=== PATIENT | male | born 1980 | race Caucasian/White ===

== ENCOUNTER 2019-01-31 12:18 | Emergency (ER) | payer SELFPAY ==
[2019-01-31 12:54] VITALS: BP 131/91; PULSE 76; TEMP 98; BMI 31.8
[2019-01-31] MEDS ORDERED: KETOROLAC TROMETHAMINE 30 MG/1 ML VIAL IVPUSH ONE (13:29)
[2019-01-31] MEDS ORDERED: KETOROLAC TROMETHAMINE 30 MG/1 ML VIAL ONE (14:17)
[2019-01-31 14:22] LABS: BASO % 0.6 % (0-2.0); EOS % 0.2 % (0-4.5); HEMATOCRIT 45.3 % (35.4-49); LYMPH % 8.1 % (8-40); MCH 30.9 pg (25.7-33.7); MCHC 33.1 g/dl (32.0-35.9); MEAN CELL VOLUME 93.3 fl (80-96); MONO % 6.1 % (3.8-10.2); PLATELET COUNT 437 K/MM3 (134-434); RBC 4.86 M/mm3 (4.00-5.60); RDW 14.4 % (11.9-15.9); WHITE BLOOD COUNT 14.7 K/mm3 (4.0-10.0)
[2019-01-31 14:36] LABS: PH,URINE 5.5 (5.0-8.0); URINE APPEARANCE CLEAR; URINE BILIRUBIN NEGATIVE (NEGATIVE); URINE COLOR YELLOW; URINE GLUCOSE (UA) NEGATIVE (NEGATIVE); URINE KETONE NEGATIVE (NEGATIVE); URINE LEUK ESTERASE NEGATIVE (NEGATIVE); URINE NITRITE NEGATIVE (NEGATIVE); URINE PROTEIN NEGATIVE (NEGATIVE); URINE UROBILINOGEN 0.2 mg/dL (0.2-1.0)
[2019-01-31 14:45] LABS: ALBUMIN 4.5 g/dl (3.4-5.0); BILIRUBIN,TOTAL 0.4 mg/dL (0.2-1); BLOOD UREA NITROGEN 11.4 mg/dL (7-18); CALCIUM 9.1 mg/dL (8.5-10.1); CREATININE 0.7 mg/dL (0.55-1.3); POTASSIUM 3.9 mmol/L (3.5-5.1)
--- NOTE | 2019-01-31 16:29 | PDOC ---
History of Present Illness - General Chief Complaint: Pain Stated Complaint: ABD PAIN Time Seen by Provider: 01/31/19 13:26 History Source: Patient Exam Limitations: No Limitations - History of Present Illness Travel History: No Initial Comments: 01/31/19 15:36 38-year-old male who presents the ED with complaints of left lower quadrant pain which he describes as sharp worsened with movement since yesterday patient states similar pain years ago a few months ago but it went away on its own and did not follow-up with his doctor. Patient has no urinary complaints, bowel complaints, a lump noted with movement, fever, chills nausea, recent injury Timing/Duration: reports: constant Quality: reports: moderate, cramping, sharpness Abdominal Pain Onset Location: reports: LLQ Pain Radiation: reports: groin Activities at Onset: reports: none Aggravating Factors: improves with: None Alleviating Factors: improves with: None Past History - Travel Traveled outside of the country in the last 30 days: No Close contact w/someone who was outside of country & ill: No - Past Medical History Allergies/Adverse Reactions: Allergies Allergy/AdvReac Type Severity Reaction Status Date / Time No Known Allergies Allergy Verified 01/31/19 12:50 Home Medications: Ambulatory Orders NK [No Known Home Medication] 01/31/19 COPD: No - Psycho Social/Smoking Cessation Hx Smoking History: Current some day smoker Number of Cigarettes Smoked Daily: 5 Information on smoking cessation initiated: No Hx Alcohol Use: No Drug/Substance Use Hx: No Patient Lives Alone: No Lives with/in: spouse/SO Review of Systems - Review of Systems Able to Perform ROS?: Yes Constitutional: No: Symptoms Reported HEENTM: No: Symptoms Reported Respiratory: No: Symptoms reported Cardiac (ROS): No: Symptoms Reported ABD/GI: Yes: Abdominal cramping : No: Symptoms Reported Musculoskeletal: No: Symptoms Reported Integumentary: No: Symptoms Reported Neurological: No: Symptoms reported *Physical Exam - Vital Signs Last Vital Signs Temp Pulse Resp BP Pulse Ox 98 F 76 18 131/91 99 01/31/19 12:50 01/31/19 12:50 01/31/19 12:50 01/31/19 12:50 01/31/19 12:50 - Physical Exam General Appearance: Yes: Nourished, Appropriately Dressed. No: Apparent Distress HEENT: positive: EOMI, FABIAN. negative: Pale Conjunctivae Neck: positive: Supple Respiratory/Chest: positive: Lungs Clear, Normal Breath Sounds. negative: Respiratory Distress, Accessory Muscle Use Cardiovascular: positive: Regular Rhythm, Regular Rate. negative: Murmur Gastrointestinal/Abdominal: positive: Normal Bowel Sounds, Soft, Tenderness ( llq and left suprapubic tenderness). negative: Distended, Guarding, Rebound, Hernia, Mass Male Genitalia: positive: normal genitalia Musculoskeletal: negative: CVA Tenderness Integumentary: positive: Normal Color, Warm, Moist. negative: Rash Neurologic: positive: Motor Strength 5/5 (ambulatory) ED Treatment Course - LABORATORY CBC & Chemistry Diagram: 01/31/19 13:45 01/31/19 13:45 - ADDITIONAL ORDERS Additional order review: Laboratory Results 01/31/19 01/31/19 01/31/19 14:00 13:45 13:45 Sodium 140 Potassium 3.9 Chloride 106 Carbon Dioxide 26 Anion Gap 7 L BUN 11.4 Creatinine 0.7 Est GFR (CKD-EPI)AfAm 137.78 Est GFR (CKD-EPI)NonAf 118.88 Random Glucose 93 Calcium 9.1 Magnesium 2.6 H Total Bilirubin 0.4 AST 44 H ALT 72 H Alkaline Phosphatase 83 Total Protein 8.0 Albumin 4.5 Urine Color Yellow Urine Appearance Clear Urine pH 5.5 Ur Specific [place] 1.022 Urine Protein Negative Urine Glucose (UA) Negative Urine Ketones Negative Urine Blood Negative Urine Nitrite Negative Urine Bilirubin Negative Urine Urobilinogen 0.2 Ur Leukocyte Esterase Negative 01/31/19 13:45 RBC 4.86 MCV 93.3 MCHC 33.1 RDW 14.4 MPV 7.0 L Neutrophils % 85.0 H Lymphocytes % 8.1 Monocytes % 6.1 Eosinophils % 0.2 Basophils % 0.6 - RADIOLOGY Radiology Studies Ordered: Category Date Time Status ABDOMEN & PELVIS CT W/O CONTR [CT] Stat CT Scan 01/31/19 13:30 Ordered - Medications Given in the ED: ED Medications Discontinued Medications Generic Name Dose Route Start Last Admin Trade Name Freq PRN Reason Stop Dose Admin Ketorolac Tromethamine 30 mg 01/31/19 13:29 01/31/19 14:28 Toradol Injection - IVPUSH 01/31/19 13:30 30 mg ONCE ONE Administration Medical Decision Making - Medical Decision Making 01/31/19 15:38 Chief complaint: Left lower quadrant pain which she describes as sharp cramping rating to his left groin. Patient states similar symptoms earlier this year which resolved on its own. Patient has no other complaints at this time patient denies medical history Exam patient with left lower quadrant suprapubic pain on exam no CVA tenderness. Vital signs stable. Plan: labs, urine, Toradol, abdominal CT 01/31/19 16:40 Laboratory Tests 01/31/19 01/31/19 01/31/19 13:45 13:45 13:45 WBC 14.7 H Hgb 15.0 Hct 45.3 Plt Count 437 H MPV 7.0 L Absolute Neuts (auto) 12.5 H Neutrophils % 85.0 H Sodium 140 Potassium 3.9 Chloride 106 Carbon Dioxide 26 Anion Gap 7 L Random Glucose 93 Calcium 9.1 Magnesium 2.6 H Total Bilirubin 0.4 AST 44 H ALT 72 H Alkaline Phosphatase 83 Total Protein 8.0 Albumin 4.5 Urine Ketones Urine Blood Urine Bilirubin 01/31/19 14:00 WBC Hgb Hct Plt Count MPV Absolute Neuts (auto) Neutrophils % Sodium Potassium Chloride Carbon Dioxide Anion Gap Random Glucose Calcium Magnesium Total Bilirubin AST ALT Alkaline Phosphatase Total Protein Albumin Urine Ketones Negative Urine Blood Negative Urine Bilirubin Negative 01/31/19 16:40 CT shows acute sigmoid diverticulitis with no definitive abscess seen. Small to moderate amount of pelvic free fluid is seen. There is also a small amount of free fluid within the right pericolic space. Patient will be given IV antibiotics and discharged home with the same Discharge - Discharge Information Problems reviewed: Yes Clinical Impression/Diagnosis: Diverticulitis Condition: Improved Disposition: HOME - Follow up/Referral Referrals: Tato Ortiz DO [Staff Physician] - - Patient Discharge Instructions Patient Printed Discharge Instructions: DI for Diverticulitis Additional Instructions: Take antibiotics starting tonight. Eat soft foods avoiding greasy fatty and acidy foods. Please follow-up with work manager. Return to ED if your symptoms worsen ....including severe abdominal pain, nausea vomiting fever, or inability to eat. - Post Discharge Activity
[2019-01-31] MEDS ORDERED: CIPROFLOXACIN 400 MG/D5W 400 MG/200 ML IVPB IVPB ONE (16:43)
== END 2019-01-31 17:34 | disposition home or self-care (01) ==
LOC: JER 12:18
PROC: 3E03329 Introduction of Other Anti-infective into Peripheral Vein, Percutaneous Approach (ICD-10-PCS; principal; 2019-01-31)
PROC: 3E0333Z Introduction of Anti-inflammatory into Peripheral Vein, Percutaneous Approach (ICD-10-PCS; 2019-01-31)
DX: K57.92 Diverticulitis of intestine, part unspecified, without perforation or abscess without bleeding (principal)
CPT/HCPCS: 36415; 74176-TC; 80053; 81003; 83735; 85025; 87086; 99283-25